=== PATIENT | female | born 1960 | race Caucasian/White ===

== ENCOUNTER 2020-12-06 07:44 | Outpatient (CLI) | payer OTHER | END 2020-12-06 07:45 | disposition home or self-care (01) | LOC: CSHULT 07:44 | PROVIDERS: ATTEND Internal Medicine Gastroenterology | DX: R94.5 Abnormal results of liver function studies (principal) | CPT/HCPCS: 93975 ==

== ENCOUNTER 2022-06-09 08:40 | Outpatient (CLI) | payer OTHER | END 2022-06-09 08:41 | disposition home or self-care (01) | LOC: CSHMRI 08:40 | PROVIDERS: ATTEND Internal Medicine Rheumatology | DX: M54.16 Radiculopathy, lumbar region (principal); R74.8 Abnormal levels of other serum enzymes; R79.89 Other specified abnormal findings of blood chemistry; M47.816 Spondylosis without myelopathy or radiculopathy, lumbar region | CPT/HCPCS: 72148; 76705 ==

== ENCOUNTER 2022-12-01 13:51 | Outpatient (CLI) | payer OTHER | END 2022-12-01 13:52 | disposition home or self-care (01) | LOC: CSHMAMMO 13:51 | PROVIDERS: ATTEND Family Medicine | DX: Z12.31 Encounter for screening mammogram for malignant neoplasm of breast (principal); Z80.3 Family history of malignant neoplasm of breast | CPT/HCPCS: 77063; 77067 ==